=== PATIENT | male | born 1965 | race Caucasian/White ===

== ENCOUNTER 2016-04-13 10:00 | Emergency (ER) | payer OTHER ==
[~2016-04-13] VITALS: Ht 172.7 cm; Wt 69.2 kg
[~2016-04-13 10:00] MED LIST: CIPRO500 M1 PO; FLAGYL500 MG PO; GABAPENTIN600 MG PO; MOTRIN IB200 MG PO; NOHOMEMEDS; TAMIFLU75 MG PO; ZITHROMAX Z-PA250 MG PO
[2016-04-13] MEDS ORDERED: FLONASE16 G1 BOTH NARES (11:28)
[2016-04-13 11:50] LABS: HEMATOCRIT 42.4 % (38.0-50.0); MCH 30.8 PG (29.0-34.0); MCHC 35.1 G/DL (30.0-36.0); MCV 87.8 FL (86-99); MEAN PLAT.VOLUME 9.9 uM^3 (9.0-12.4); PLATELET COUNT 264 K/uL (156-360); RED BLOOD COUNT 4.83 M/uL (4.00-5.50); WHITE BLOOD COUNT 7.7 K/uL (4.1-10.2)
[2016-04-13 12:10] LABS: TROP-I INTERPRETATION NEGATIVE; TROPONIN-I < 0.01 ng/mL (0.0-0.30)
[2016-04-13 12:14] LABS: ANION GAP 7 MEQ/L (2-14); CHLORIDE 107 MEQ/L (99-109); POTASSIUM 3.8 MEQ/L (3.7-5.4); SAMPLE HEMOLYSIS CHECK 0; SAMPLE ICTERIC CHECK 0; SAMPLE LIPEMIA CHECK 0; SODIUM 140 MEQ/L (136-147); TOTAL BILIRUBIN 0.8 MG/DL (0.0-1.0)
[2016-04-13 12:20] LABS: ALKALINE PHOSPHATASE 91 IU/L (3-129); GFR ESTIMATE (CALCULATED) > 59 mL/min/; GLUCOSE 82 mg/dL (70-99); LIPASE 27 U/L (1.0-51.0); UREA NITROGEN (BUN) 14 mg/dL (9-23)
[2016-04-13] MEDS ORDERED: OMEPRAZOLE40 M1 PO (12:39)
[2016-04-13 12:48] VITALS: BP 110/83
== END 2016-04-13 12:49 | disposition home or self-care (01) ==
LOC: EME 10:00
PROVIDERS: Nurse Practitioner Family
DX: K21.9 Gastro-esophageal reflux disease without esophagitis (principal); R07.89 Other chest pain
CPT/HCPCS: 71020; 80053; 83690; 84484; 85027; 93005; 99281; 99284

== ENCOUNTER 2017-09-09 07:08 | Emergency (ER) | payer OTHER ==
[~2017-09-09] VITALS: Ht 172.7 cm; Wt 69.2 kg
[~2017-09-09 07:08] MED LIST changes: +FLONASE16 G1 BOTH NARES; +OMEPRAZOLE40 M1 PO
[2017-09-09 07:19] VITALS: BP 117/84
[2017-09-09] MEDS ORDERED: KEFLEX500 MG PO (07:49)
== END 2017-09-09 07:59 | disposition home or self-care (01) ==
LOC: EME 07:08
DX: L03.113 Cellulitis of right upper limb (principal); S50.861A Insect bite (nonvenomous) of right forearm, initial encounter; W57.XXXA Bitten or stung by nonvenomous insect and other nonvenomous arthropods, initial encounter
CPT/HCPCS: 99281; 99284